=== PATIENT | female | born 1990 | race Caucasian/White ===

== ENCOUNTER 2017-09-11 03:12 | Emergency (ER) | payer SELFPAY ==
[2017-09-11 03:20] VITALS: BP 132/74; PULSE 70; RESP 16; TEMP 36.8; O2SAT 99; BMI 18.6
--- NOTE | 2017-09-11 03:58 | [facility].EDANX ---
ED Disposition Clinical Impression: Caffeine adverse reaction Qualifiers: Encounter type: initial encounter Qualified Code(s): T43.615A - Adverse effect of caffeine, initial encounter Disposition: Home, Self-Care Condition on Discharge: Good Instructions: DI for Adverse Drug Reaction -- Other Additional Instructions: please limit caffeine - Critical Care Critical Care Time: No Attestation: On , the high probability of a clinically significant, sudden or life threatening deterioration of the following system(s) required my full and direct attention, intervention and personal management. The time I documented below is in addition to time spent performing reported procedures but includes the following listed in this critical care notation. Medical Decision Making - Medical Records Medical records reviewed: Yes: I reviewed the patient's medical records. Vital Signs: 09/11/17 03:20 Temperature 98.3 F Temperature Source Temporal Artery Scan Pulse Rate [Right Brachial] 70 Respiratory Rate 16 Blood Pressure [Right Arm] 132/74 Blood Pressure Mean [Right Arm] 93 Blood Pressure Source [Right Arm] Automatic Cuff Blood Pressure Position [Right Arm] Sitting 02 Sat by Pulse Oximetry 99 Oxygen Delivery Method Room Air - Ruiz Inquiry Pt receiving controlled substance: No Anxiety HPI - General Chief Complaint: Anxiety Stated Complaint: SOA,Rapid Heart Rate Time Seen by Provider: 09/11/17 03:58 Mode of Arrival: Family Vehicle Source of Information: Patient Limitations: No Limitations Description of Symptoms (Recalled from ER Triage Doc. by RN): C/O SOB AND FEELING JITTERY 3-4 HOURS AFTER DRINKING AN ENERGY DRINK. HAS HAD SIMILAR SYMPTOMS A COUIPLE OF TIMES AFTER DRINKING COFFEE - History of Present Illness HPI narrative: pt with palpitations and shaking and feeling anxious after using caff- she has had 2 other episodes in past MD complaint: anxiety, heart racing, shortness of breath Onset (ago): hour(s) Symptoms: palpitations Severity: similar to previous episodes Quality: improving Place: home History of similar episodes: Yes Provoking factors: other (energy drink) - Related Data Home Medications: Home Medications Medication Instructions Recorded Confirmed No Known Home Medications [No 09/11/17 09/11/17 Known Home Medications] Allergies/Adverse Reactions: Allergies Allergy/AdvReac Type Severity Reaction Status Date / Time No Known Allergies Allergy Verified 09/11/17 03:28 [facility] History I have reviewed the patient's past medical history: Yes Medical History: Denies:: Cancer, Diabetes Mellitus Type 1, Diabetes Mellitus Type 2, MRSA Amputation: No Fractures: No - *Social History Smoking Status: Never smoker Alcohol Intake: never - Psychiatric History Expresses thoughts of harming self/others: None Suicide Plan Description: No Plan ROS Obtained: Yes All systems reviewed & no additional complaints - Constitutional Constitutional: Denies fever(s) - Eyes Eyes: Denies change in vision - ENT Ears, Nose, Mouth, and Throat: Denies lip swelling, Denies throat swelling - Cardiovascular Cardiovascular: Denies chest pain, Reports palpitations - Respiratory Respiratory: No cough - Gastrointestinal Gastrointestingal: Denies: nausea - Musculoskeletal Musculoskeletal: Denies joint pain, Denies joint swelling - Integumentary/Breasts Skin/Breast: Denies rash - Neurologic Neurologic: Denies convulsions Physical Exam - General General appearance: alert, in no apparent distress - Head Head exam: normocephalic - Eye Eye exam: Present: PERRL, EOMI. Absent: scleral icterus - ENT ENT exam: Present: mucous membranes moist - Neck Neck exam: Present: trachea midline - Respiratory Respiratory exam: Present: normal lung sounds bilaterally. Absent: respiratory distress - Cardiovascular Cardiovascular exam: Present: regular rate. Absent: systolic murm
--- NOTE | 2017-09-11 04:01 | ED_ITS ---
ED Disposition Clinical Impression: Caffeine adverse reaction Qualifiers: Encounter type: initial encounter Qualified Code(s): T43.615A - Adverse effect of caffeine, initial encounter Disposition: Home, Self-Care Condition on Discharge: Good Instructions: DI for Adverse Drug Reaction -- Other Additional Instructions: please limit caffeine - Critical Care Critical Care Time: No Attestation: On , the high probability of a clinically significant, sudden or life threatening deterioration of the following system(s) required my full and direct attention, intervention and personal management. The time I documented below is in addition to time spent performing reported procedures but includes the following listed in this critical care notation. Medical Decision Making - Medical Records Medical records reviewed: Yes: I reviewed the patient's medical records. Vital Signs: 09/11/17 03:20 Temperature 98.3 F Temperature Source Temporal Artery Scan Pulse Rate [Right Brachial] 70 Respiratory Rate 16 Blood Pressure [Right Arm] 132/74 Blood Pressure Mean [Right Arm] 93 Blood Pressure Source [Right Arm] Automatic Cuff Blood Pressure Position [Right Arm] Sitting 02 Sat by Pulse Oximetry 99 Oxygen Delivery Method Room Air - Ruiz Inquiry Pt receiving controlled substance: No Anxiety HPI - General Chief Complaint: Anxiety Stated Complaint: SOA,Rapid Heart Rate Time Seen by Provider: 09/11/17 03:58 Mode of Arrival: Family Vehicle Source of Information: Patient Limitations: No Limitations Description of Symptoms (Recalled from ER Triage Doc. by RN): C/O SOB AND FEELING JITTERY 3-4 HOURS AFTER DRINKING AN ENERGY DRINK. HAS HAD SIMILAR SYMPTOMS A COUIPLE OF TIMES AFTER DRINKING COFFEE - History of Present Illness HPI narrative: pt with palpitations and shaking and feeling anxious after using caff- she has had 2 other episodes in past MD complaint: anxiety, heart racing, shortness of breath Onset (ago): hour(s) Symptoms: palpitations Severity: similar to previous episodes Quality: improving Place: home History of similar episodes: Yes Provoking factors: other (energy drink) - Related Data Home Medications: Home Medications Medication Instructions Recorded Confirmed No Known Home Medications [No 09/11/17 09/11/17 Known Home Medications] Allergies/Adverse Reactions: Allergies Allergy/AdvReac Type Severity Reaction Status Date / Time No Known Allergies Allergy Verified 09/11/17 03:28 [facility] [place] History I have reviewed the patient's past medical history: Yes Medical History: Denies:: Cancer, Diabetes Mellitus Type 1, Diabetes Mellitus Type 2, MRSA Amputation: No Fractures: No - *Social History Smoking Status: Never smoker Alcohol Intake: never - Psychiatric History Expresses thoughts of harming self/others: None Suicide Plan Description: No Plan ROS Obtained: Yes All systems reviewed & no additional complaints - Constitutional Constitutional: Denies fever(s) - Eyes Eyes: Denies change in vision - ENT Ears, Nose, Mouth, and Throat: Denies lip swelling, Denies throat swelling - Cardiovascular Cardiovascular: Denies chest pain, Reports palpitations - Respiratory Respiratory: No cough - Gastrointestinal Gastrointestingal: Denies: na
[2017-09-11 04:11] VITALS: BP 112/71; PULSE 77; RESP 18; TEMP 36.5; O2SAT 96
== END 2017-09-11 04:13 | disposition home or self-care (01) ==
PROVIDERS: Emergency Provider Emergency Medicine
DX: T43.615A Adverse effect of caffeine, initial encounter (principal); R00.2 Palpitations
CPT/HCPCS: 93041; 99202; 99281